=== PATIENT | male | born 1960 | race Caucasian/White ===

== ENCOUNTER 2021-05-12 08:41 | Inpatient (IN) | payer OTHER ==
[~2021-05-12] VITALS: Ht 185.4 cm; Wt 90.7 kg
[2021-05-12 08:58] LABS: PCO2 Arterial 57.2 mmHg (35-45); PO2 Arterial 274 mmHg (80-100); pH Blood Arterial 6.91 (7.35-7.45)
[2021-05-12 09:26] LABS: Alanine Aminotransfer (ALT/SGP 40 U/L (12-78); Albumin, Blood 2.7 g/dL (3.4-5.0); Albumin/Globulin Ratio 0.9 (0.8-1.8); Alk Phos 23 U/L (50-136); Anion Gap 23 mmol/L (6-16); Aspartate Aminotrans (AST/SGOT 22 U/L (12-37); Bilirubin, Total 0.2 mg/dL (0.1-1.0); Blood Urea Nitrogen 21 mg/dL (8-24); Bun/Creatinine Ratio 17.9 (12.0-20.0); CHOL/HDL RATIO 3.4; CO2, Blood 11 mmol/L (21-32); Calcium, Blood 8.3 mg/dL (8.5-10.1); Chloride, Blood 105 mmol/L (98-108); Cholesterol 141 mg/dL (50-200); Creatinine, Blood 1.17 mg/dL (0.60-1.20); Glomerular Filtration Rate >60 (60-); Glucose, Blood 264 mg/dL (70-99); HDL Cholesterol 42 mg/dL (>39); LDL/HDL RATIO 1.9; Low Density Lipoprotein Chol 79 mg/dL (0-110); Magnesium, Blood 2.9 mg/dL (1.6-2.4); Potassium, Blood 4.9 mmol/L (3.5-5.5); Sodium, Blood 139 mmol/L (136-145); Total Protein, Blood 5.7 g/dL (6.4-8.2); Triglycerides 100 mg/dL (30-160); Very Low Density Lipoprot Chol 20 mg/dL (6-32)
[2021-05-12 09:29] LABS: BASOPHILS PERCENT AUTO 0 % (0-2); EOSINOPHILS ABSOLUTE AUTO 0.17 K/mm3 (0.00-0.68); EOSINOPHILS PERCENT AUTO 1 % (0-6); Hemoglobin 14.7 g/dL (13.5-17.5); IMMATURE GRAN ABSOLUTE AUTO 2.63 K/mm3 (0.00-0.10); IMMATURE GRAN PERCENT AUTO 9 % (0-1); LYMPHOCYTES ABSOLUTE AUTO 1.95 K/mm3 (0.84-5.20); LYMPHOCYTES PERCENT AUTO 6 % (21-46); MONOCYTES ABSOLUTE AUTO 1.24 K/mm3 (0.16-1.47); MONOCYTES PERCENT AUTO 4 % (4-13); Mean Corpuscular HGB 31.5 pg (26.0-34.0); Mean Corpuscular Volume 99 fL (80-100); Mean Platelet Volume 10.5 fL (9.1-12.4); NEUTROPHILS ABSOLUTE AUTO 24.25 K/mm3 (1.96-9.15); NEUTROPHILS PERCENT AUTO 80 % (41-73); NRBC ABSOLUTE 0.03 K/mm3 (0.00-0.02); NRBC Auto 0.1 /100 WBC (0.0-0.2); Platelet Count 281 K/mm3 (150-400); RDW Coefficient Variation 13.5 % (11.7-14.2); RDW Standard Deviation 49.1 fL (35.1-46.3); Red Blood Cell Count 4.67 M/mm3 (4.30-5.90); White Blood Cell Count 30.34 K/mm3 (4.00-11.30)
[2021-05-12 09:36] LABS: International Normalized Ratio 0.97; Prothrombin Time Results 10.2 Sec (9.7-11.5)
[2021-05-12] MEDS ORDERED: ENOX40I SC (09:52)
[2021-05-12] MEDS ORDERED: LISI5 PO (09:53)
[2021-05-12] MEDS ORDERED: FURO20 PO (09:53)
[2021-05-12] MEDS ORDERED: LEVE500 PO (09:54)
[2021-05-12] MEDS ORDERED: POTCHL20ER PO (09:54)
[2021-05-12 10:31] LABS: Source, Urine Foley catheter
[2021-05-12 10:45] LABS: Appearance, Urine Clear (Clear); Bilirubin, Urine Neg (Neg); Blood, Urine 3+ (Neg); Color, Urine Yellow (P-Yellow); Glucose Qualitative, Urine 3+ (Neg); Ketones, Urine Neg (Neg); Leukocyte Esterase, Urine Neg (Neg); Nitrite, Urine Neg (Neg); Protein, Urine 3+ (Neg); Specific Gravity, Urine 1.025 (1.003-1.022); Urobilinogen, Urine NORM (Normal)
[2021-05-12 10:52] LABS: PCO2 Arterial 39.6 mmHg (35-45); PO2 Arterial 241 mmHg (80-100); pH Blood Arterial 7.35 (7.35-7.45)
[2021-05-12 11:08] LABS: Amorphous Light (0-Heavy); Bacteria Few /hpf; Squamous Epithelial Cells Few /hpf (Few); White Blood Cells, Urine 0-2 /hpf (0-5)
[2021-05-12 11:57] LABS: Influenza A, PCR NEGATIVE (NEGATIVE); Influenza B, PCR NEGATIVE (NEGATIVE); Resp Syncytial Virus, PCR NEGATIVE (NEGATIVE); SARS-Cov-2 (COVID-19) PCR, MMC NEGATIVE (NEGATIVE)
--- NOTE | 2021-05-12 17:37 | NUR ---
PT ARRIVED TO ROOM AT 1530 FROM ED, INTUBATED AND SEDATED WITH PROPOFOL AND FENTANYL. VENT SETTINGS AC 16/450/45/5. OG IN PLACE WITH BROWN DRAINAGE, PLACED ON LIS. WAHL IN PLACE WITH BALOON REQUIRING REINFLATION DUE TO LEAKING. RASH TO CHEST AND NECK. PT WAS CONNECTED TO MONITOR WITH RYTHM THAT APPEARED TO HAVE ST ELEVATION. STAT EKG DONE WITH RESULT STATING NSR WITH BBB. QT INTERVAL ALSO NOTED TO BE LONG. CALL TO DR MCCAULEY TO REPORT THIS AND DR ORDERED REPEAT TROPONIN. PT'S S.O AT BEDSIDE PROVIDING HISTORY. REACH STAFF ARRIVED AND TRANSPORTED PT VIA GURNEY AT 1730
--- NOTE | 2021-05-12 17:56 | NUR ---
REPORT CALLED TO [facility] NURSE. NURSE AWARE OF PT'S RASH TO CHEST AND CARDIAC RHYTHM. GAVE NURSE PT'S MOTHER AND S.O'S NUMBERS. NURSE AWARE THAT REACH COLLECTED PT AT 1730 AND SHOULD ARRIVE IN AN HOUR. NURSE AWARE THAT ECHO AND BLOOD CULTURES WERE DONE HERE. NO FURTHER QUESTIONS BUT HAS NUMBER IF NEEDED
== END 2021-05-12 17:28 | disposition short-term general hospital (02) | DRG 101 ==
LOC: ER 08:41 → ICUW 14:57 → ICUE 15:43
PROVIDERS: Student in an Organized Health Care Education/Training Program; ADMIT Internal Medicine
DX: G40.901 Epilepsy, unspecified, not intractable, with status epilepticus (principal); I47.2 Ventricular tachycardia; E87.4 Mixed disorder of acid-base balance; I50.22 Chronic systolic (congestive) heart failure; I42.2 Other hypertrophic cardiomyopathy; Z20.822 Contact with and (suspected) exposure to COVID-19; I11.0 Hypertensive heart disease with heart failure; R77.8 Other specified abnormalities of plasma proteins; R91.1 Solitary pulmonary nodule; I48.91 Unspecified atrial fibrillation; Z79.01 Long term (current) use of anticoagulants; Z86.711 Personal history of pulmonary embolism; Z86.718 Personal history of other venous thrombosis and embolism; Z79.899 Other long term (current) drug therapy
CPT/HCPCS: 0241U; 36415; 36600; 51702; 70450; 71045; 80053; 80061; 81001; 82550; 82803; 83605; 83735; 83880; 84484; 85025; 85610; 85730; 86850; 86900; 86901; 92960; 93005; 93010; 93306; 93356; 94002; 96365; 96367; 96375; 99285-25; A9270; J0696; J1953; J2060; J2704; J3010; J7030; Q2009